=== PATIENT | male | born 1960 | race Caucasian/White ===

== ENCOUNTER 2020-11-10 01:13 | Emergency (ER) | payer MEDICAID ==
[2020-11-10] MEDS ORDERED: Sodium Chloride 0.9% 1,000 ML IV ONE (01:31)
[2020-11-10] MEDS ORDERED: Sodium Chloride 0.9% 10 ML Syringe FLUSH PRN (01:31)
[2020-11-10] MEDS ORDERED: Sodium Chloride 0.9% 2.5 ML Syringe FLUSH PRN (01:31)
[2020-11-10] MEDS ORDERED: Ondansetron 4 MG/2 ML SDV IVPUSH ONE (01:35)
--- NOTE | 2020-11-10 01:38 | EDM.PDOC ---
ED HPI GENERAL MEDICAL PROBLEM - General Chief Complaint: Drug or Alcohol Abuse Stated Complaint: DETOX Time Seen by Provider: 11/10/20 01:31 - History of Present Illness INITIAL COMMENTS - FREE TEXT/NARRATIVE: HISTORY AND PHYSICAL: History of present illness: This is a 60-year-old gentleman who presents ER today requesting assistance with detox from opiates. Patient reports he takes Roxicet, fentanyl, occasional heroin, and utilize methamphetamines yesterday. Patient reports that his last dose of heroin was approximately 1 PM today. Patient reports that he spoke to an individual from [facility] and was instructed to go there for assistance with inpatient detox. At this time he is not able to contact anyone from [facility] for intake. Patient currently is complaining of muscle cramps. Patient denies any recent fevers, shakes, chills, vomiting, diarrhea, dysuria, frequency, urgency, chest pain, abdominal pain, shortness of breath. Patient reports that he is having some nausea which is typical with his withdrawal. Review of systems: As per history of present illness and below otherwise all systems reviewed and negative. Past medical history: As per history of present illness and as reviewed below otherwise noncontributory. Surgical history: As per history of present illness and as reviewed below otherwise noncontributory. Social history: No reported history of drug or alcohol abuse. Family history: As per history of present illness and as reviewed below otherwise noncontributory. Physical exam: This patient was seen and evaluated during the 2019 SARS-CoV-2 novel coronavirus pandemic period. Community viral transmission is ongoing at time of this encounter and the emergency department is operating under pandemic response procedures. Constitutional: Patient is oriented to person, place, and time. Appears well- developed and well-nourished. No distress. HEENT: Moist mucous membranes Head: Normocephalic and atraumatic Eyes: Right eye exhibits no discharge. Left eye exhibits no discharge. No scleral icterus Neck: Normal range of motion. No tracheal deviation present. Cardiovascular: Normal rate and regular rhythm. Pulmonary: Effort normal, no respiratory distress. Abdominal: No distention Musculoskeletal: Normal range of motion Neurologic: Alert and oriented to person, place and time. Skin: [place], warm and dry. Psychiatric: Normal mood and affect. Behavior is normal. Judgment and thought content normal. Nursing note and vital signs have been reviewed Diagnostics: EKG: As interpreted by ER physician: [place]: Nonspecific ST-T wave abnormalities Normal axis No evidence of ST elevation VT Normal sinus rhythm heart rate of 75 Therapeutics: Zofran, NSS x1 L Assessment and plan: 60-year-old gentleman who presents ER today for assistance with opiate use disorder. Patient will be medically cleared. Patient be given IV fluids and Zofran to assist with his nausea. Patient's labs are all within normal limits. Patient's urine drug screen is n egative for oxycodone, opiates, methadone. Patient's urine was positive for methamphetamine/amphetamines. Alcohol level was 0. Patient been resting comfortably in the ED without further complaints. Patient is medically stable for discharge home to resume with his plan to seek outpatient drug rehab. Reassessment at the time of disposition demonstrates that the patient is in no acute distress. The patient has remained stable throughout the entire ED visit and is without objective evidence for acute process requiring urgent intervention or hospitalization. The patient is stable for discharge, counseling is provided as documented above, discussed symptomatic treatment and specific conditions for return. I have spoken with the patient/caregiver and discussed todays findings, in addition to providing specific details for the plan of care. Questions are answered and there is agreement with the plan. Definitive disposition and diagnosis as appropriate pending reevaluation and review of above. Generalized Pain Score (Numeric/FACES): 7 - Related Data Allergies Allergy/AdvReac Type Severity Reaction Status Date / Time iodine Allergy Swelling Verified 11/10/20 01:35 Home Meds: Home Meds . [No Known Home Meds] 11/10/20 [History] ED ROS GENERAL - Review of Systems Review Of Systems: See Below ED EXAM, GENERAL - Physical Exam Exam: See Below Course - Vital Signs Last Recorded V/S: Last Vital Signs Temp 98 F 11/10/20 01:35 Pulse 76 11/10/20 04:58 Resp 16 11/10/20 04:58 BP 112/55 L 11/10/20 04:58 Pulse Ox 95 11/10/20 04:58 - Orders/Labs/Meds Orders: Active Orders 24 hr Category Date Time Status EKG Documentation Completion [RC] STAT Care 11/10/20 01:35 Active Sodium Chloride 0.9% [Saline Flush] Med 11/10/20 01:31 Active 10 ml FLUSH ASDIRECTED PRN Sodium Chloride 0.9% [Saline Flush] Med 11/10/20 01:31 Active 2.5 ml FLUSH ASDIRECTED PRN Saline Lock Insert [OM.PC] Stat Oth 11/10/20 01:31 Ordered Medication Orders Sodium Chloride (Sodium Chloride 0.9% 10 Ml Syringe) 10 ml FLUSH ASDIRECTED PRN PRN Reason: Keep Vein Open Sodium Chloride (Sodium Chloride 0.9% 2.5 Ml Syringe) 2.5 ml FLUSH ASDIRECTED PRN PRN Reason: Keep Vein Open Last Admin: 11/10/20 01:43 Dose: 2.5 ml Documented by: ARMO Labs: Laboratory Tests 11/10/20 11/10/20 11/10/20 Range/Units 01:30 01:30 03:40 WBC 12.57 H (4.0-11.0) K/uL RBC 4.80 (4.50-5.90) M/uL Hgb 15.5 (13.0-17.0) g/dL Hct 45.7 (38.0-50.0) % MCV 95.2 (80.0-98.0) fL MCH 32.3 H (27.0-32.0) pg MCHC 33.9 (31.0-37.0) g/dL RDW Std Deviation 44.1 (28.0-62.0) fl RDW Coeff of Renzo 13 (11.0-15.0) % Plt Count 288 (150-400) K/uL MPV 10.30 (7.40-12.00) fL Neut % (Auto) 61.8 (48.0-80.0) % Lymph % (Auto) 22.6 (16.0-40.0) % [place] % (Auto) 3.9 (0.0-15.0) % Eos % (Auto) 11.5 H (0.0-7.0) % Baso % (Auto) 0.2 (0.0-1.5) % Neut # (Auto) 7.8 H (1.4-5.7) K/uL Lymph # (Auto) 2.8 H (0.6-2.4) K/uL [place] # (Auto) 0.5 (0.0-0.8) K/uL Eos # (Auto) 1.5 H (0.0-0.7) K/uL Baso # (Auto) 0.0 (0.0-0.1) K/uL Sodium 140 (136-148) mmol/L Potassium 4.0 (3.5-5.1) mmol/L Chloride 101 (98-107) mmol/L Carbon Dioxide 29.7 (21.0-32.0) mmol/L BUN 14 (7.0-18.0) mg/dL Creatinine 1.1 (0.8-1.3) mg/dL Est Cr Clr Drug Dosing 70.44 mL/min Estimated GFR (MDRD) > 60.0 ml/min Glucose 111 H (74-106) mg/dL Calcium 8.3 L (8.5-10.1) mg/dL Magnesium 2.4 (1.8-2.4) mg/dL Total Bilirubin 0.3 (0.2-1.0) mg/dL AST 21 (15-37) IU/L ALT 27 (14-63) IU/L Alkaline Phosphatase 145 H (46-116) U/L Total Protein 7.8 (6.4-8.2) g/dL Albumin 3.9 (3.4-5.0) g/dL Globulin 3.9 (2.6-4.0) g/dL Albumin/Globulin Ratio 1.0 (0.9-1.6) Urine Opiates Screen NEGATIVE (NEGATIVE) Ur Oxycodone Screen NEGATIVE (NEGATIVE) Urine Methadone Screen NEGATIVE (NEGATIVE) Ur Barbiturates Screen NEGATIVE (NEGATIVE) Ur Phencyclidine Scrn NEGATIVE (NEGATIVE) Ur Amphetamine Screen POSITIVE (NEGATIVE) U Methamphetamines Scrn POSITIVE (NEGATIVE) U Benzodiazepines Scrn NEGATIVE (NEGATIVE) U Cocaine Metab Screen NEGATIVE (NEGATIVE) U Marijuana (THC) Screen POSITIVE (NEGATIVE) Ethyl Alcohol <3 mg/dL Meds: Medications Generic Name Dose Route Start Last Admin Trade Name Freq PRN Reason Stop Dose Admin Sodium Chloride 10 ml 11/10/20 01:31 Sodium Chloride 0.9% 10 Ml Syringe FLUSH ASDIRECTED PRN Keep Vein Open Sodium Chloride 2.5 ml 11/10/20 01:31 11/10/20 01:43 Sodium Chloride 0.9% 2.5 Ml Syringe FLUSH 2.5 ml ASDIRECTED PRN Administration Keep Vein Open Discontinued Medications Generic Name Dose Route Start Last Admin Trade Name Freq PRN Reason Stop Dose Admin Sodium Chloride 1,000 mls @ 999 mls/hr 11/10/20 01:31 11/10/20 01:44 Normal Saline IV 11/10/20 02:31 999 mls/hr .Bolus ONE Administration Ondansetron HCl 4 mg 11/10/20 01:35 11/10/20 01:43 Ondansetron 4 Mg/2 Ml Sdv IVPUSH 11/10/20 01:36 4 mg ONETIME ONE Administration Departure - Departure Time of Disposition: 05:46 Disposition: Home, Self-Care 01 Condition: Good Clinical Impression: Opioid use disorder, severe, dependence, Methamphetamine use - Discharge Information Instructions: Opioid Use Disorder, Methamphetamines Use Disorder Referrals: PCP,None [Primary Care Provider] - Forms: ED Department Discharge Additional Instructions: You were seen and evaluated in the ER today secondary to your opioid use disorder. Please resume with your current plan for detox/drug rehab at [facility]. The following information is given to patients seen in the emergency department who are being discharged to home. This information is to outline your options for follow-up care. We provide all patients seen in our emergency department with a follow-up referral. The need for follow-up, as well as the timing and circumstances, are variable depending upon the specifics of your emergency department visit. If you don't have a primary care physician on staff, we will provide you with a referral. We always advise you to contact your personal physician following an emergency department visit to inform them of the circumstance of the visit and for follow-up with them and/or the need for any referrals to a consulting specialist. The emergency department will also refer you to a specialist when appropriate. This referral assures that you have the opportunity for follow-up care with a specialist. All of these measure are taken in an effort to provide you with optimal care, which includes your follow-up. Under all circumstances we always encourage you to contact your private physician who remains a resource for coordinating your care. When calling for follow-up care, please make the office aware that this follow-up is from your recent emergency room visit. If for any reason you are refused follow-up, please contact the [facility] Emergency Department at and asked to speak to the emergency department charge nurse. Ba Herran [facility] [address] [place] [address] [facility] [address] [place] [address] Sepsis Event Note (ED) - Focused Exam Vital Signs: Vital Signs Temp Pulse Resp BP Pulse Ox 11/10/20 04:58 76 16 112/55 L 95 11/10/20 03:58 82 16 106/44 L 95 11/10/20 03:03 84 14 101/56 L 97 11/10/20 01:58 73 14 108/50 L 96 11/10/20 01:35 98 F 80 16 139/74 98 - My Orders Last 24 Hours: My Active Orders 11/10/20 01:31 Sodium Chloride 0.9% [Saline Flush] 10 ml FLUSH ASDIRECTED PRN Sodium Chloride 0.9% [Saline Flush] 2.5 ml FLUSH ASDIRECTED PRN Saline Lock Insert [OM.PC] Stat 11/10/20 01:35 EKG Documentation Completion [RC] STAT - Assessment/Plan Last 24 Hours: My Active Orders 11/10/20 01:31 Sodium Chloride 0.9% [Saline Flush] 10 ml FLUSH ASDIRECTED PRN Sodium Chloride 0.9% [Saline Flush] 2.5 ml FLUSH ASDIRECTED PRN Saline Lock Insert [OM.PC] Stat 11/10/20 01:35 EKG Documentation Completion [RC] STAT
[2020-11-10 02:03] LABS: BLOOD UREA NITROGEN,BUN 14 mg/dL (7.0-18.0); CARBON DIOXIDE,CO2 29.7 mmol/L (21.0-32.0); CHLORIDE,CL 101 mmol/L (98-107); GLUCOSE RANDOM 111 mg/dL (74-106); SODIUM,NA 140 mmol/L (136-148)
== END 2020-11-10 07:06 | disposition home or self-care (01) ==
LOC: MW.ED 01:13
DX: F11.20 Opioid dependence, uncomplicated (principal); F15.20 Other stimulant dependence, uncomplicated; Z91.041 Radiographic dye allergy status
CPT/HCPCS: 36415; 80053; 80305; 80307; 83735; 85025; 96374; 99284; J2405; J7030

== ENCOUNTER 2022-05-02 14:49 | Emergency (ER) | payer MEDICAID ==
[2022-05-02] MEDS ORDERED: Ondansetron 4 MG/2 ML SDV IVPUSH ONE (15:35)
[2022-05-02] MEDS ORDERED: Dextrose 5%-Lactated Ringers 1,000 ML IV STA (15:35)
[2022-05-02 17:23] LABS: BLOOD UREA NITROGEN,BUN 14 mg/dL (7.0-18.0); CARBON DIOXIDE,CO2 30.9 mmol/L (21.0-32.0); CHLORIDE,CL 103 mmol/L (98-107); GLUCOSE RANDOM 92 mg/dL (74-106); POTASSIUM,K 3.9 mmol/L (3.5-5.1); SODIUM,NA 142 mmol/L (136-148)
[2022-05-02 17:25] LABS: ESTIMATED GFR 77 mL/min (>60)
[2022-05-02] MEDS ORDERED: Ketorolac 30 MG/ML SDV IVPUSH ONE (18:50)
== END 2022-05-02 18:55 | disposition home or self-care (01) ==
LOC: MW.ED 14:49
DX: R11.10 Vomiting, unspecified (principal); F15.93 Other stimulant use, unspecified with withdrawal; F11.93 Opioid use, unspecified with withdrawal; Z91.041 Radiographic dye allergy status
CPT/HCPCS: 36415; 80053; 80305; 80307; 81003; 83735; 85025; 96361; 96374; 96375; 99284; J1885; J2405; J7121